=== PATIENT | female | born 1945 | race Caucasian/White ===

== ENCOUNTER 2021-06-20 18:26 | Emergency (ER) | payer MEDICARE, SELFPAY ==
--- NOTE | 2021-06-20 18:37 | ED.GENADULT ---
HPI - General Adult General Chief complaint: Extremity Injury, Upper Stated complaint: INJURED R WRIST Time Seen by Provider: 06/20/21 18:37 Source: patient Mode of arrival: ambulatory Limitations: no limitations History of Present Illness HPI narrative: 76 y/o female with hx Alzheimer's dementia presented with POA for c/o known fracture to right wrist after an unwitnessed fall at the [facility] last night. Per POA, pt was found sitting on the floor in the night, they returned her to bed, then noticed this morning she was not using the right arm to hold her coffee cup, and noticed swelling to the right wrist. Xray obtained at [facility]. Unknown if pt hit head, LOC, and she cannot describe pain. Dr Bagley sent pt for splinting for fractures to right distal radius and ulna. Pt is ambulatory, confused. Endorses pain to right wrist. History and ROS obtained from [facility] and documentation from [facility]. Related Data Home Medications Medication Instructions Recorded Confirmed Miralax 06/20/21 Seroquel 06/20/21 donepezil 06/20/21 quetiapine 06/20/21 sertraline 06/20/21 Allergies Allergy/AdvReac Type Severity Reaction Status Date / Time ibuprofen [From Advil] Allergy Unknown Verified 06/20/21 18:54 Penicillins Allergy Unknown Verified 06/20/21 18:54 Review of Systems Review of Systems: CONSTITUTIONAL: Denies body aches, fever, chills EYES: Denies visual changes ENT: Denies rhinorrhea, congestion CARDIOVASCULAR: Denies chest pain, palpitations, or edema. RESPIRATORY: Denies cough or dyspnea. GASTROINTESTINAL: Denies abdominal pain, nausea, vomiting, or diarrhea. SKIN: Denies rash, itching, or wounds. MUSCULOSKELETAL: right wrist pain NEUROLOGIC: Denies headache, numbness, tingling, or weakness. PSYCH: Denies depression or anxiety. All systems reviewed & are unremarkable except as noted in HPI and below PMFSH Comments At time of signature, I have reviewed and agree with nursing past medical, surgical, social and family history unless otherwise noted. Please see nursing chart for further information. There is no relevant family history pertinent to the presenting complaint Exam Narrative: GENERAL: Well-appearing HEAD: Normocephalic, atraumatic. EYES: conjunctivae clear, appears to have EOMI, she is unable to follow most commands as she appears to forget NECK: Supple. No vertebral point tenderness, no guarding CHEST: Speaks in full sentences. No respiratory distress. HEART: Regular rate and rhythm. Normal and equal peripheral pulses. EXTREMITIES: Pt is unable to provide history or pain level, Right UE has normal sensation, limited range of motion to wrist. Mild edema no ecchymosis, appears tender to wrist palpation. No open wounds, skin tenting, or obvious deformity; alignment normal, pulse palpable and equal bilaterally, skin warm, dry, pink. Capillary refill less than 3 seconds. SKIN: Warm, dry, no rash. NEURO: A&Ox1 PSYCH: appears tearful and scared Course Course Emergency Course: Patient's POA is aware of diagnosis, understands and agrees to treatment plan. Anticipatory guidance given. Patient agrees to follow-up as directed and is aware of reasons to seek care at the emergency department. Portions of this record may have been created with voice recognition software Level of Care: Express Care Visit Vital Signs Vital signs: Vital Signs Temperature 99.2 F 06/20/21 18:39 Pulse Rate 83 06/20/21 18:39 Respiratory Rate 20 06/20/21 18:39 Blood Pressure 123/77 06/20/21 18:39 Pulse Oximetry 100 06/20/21 18:39 Temperature 99.2 F 06/20/21 18:39 Pulse Rate 83 06/20/21 18:39 Respiratory Rate 20 06/20/21 18:39 Blood Pressure 123/77 06/20/21 18:39 Pulse Oximetry 100 06/20/21 18:39 Reviewed Procedures Orthopedic Splinting/Casting Injury #1: Splinting/Casting Date: 06/20/21 Side: right Upper Extremity Injury Location: wrist OCL: sugar tong Pre-Proced
[2021-06-20 18:39] VITALS: BP 123/77; PULSE 83; RESP 20; TEMP 37.3; O2SAT 100
== END 2021-06-20 19:23 ==
PROVIDERS: Emergency Provider Nurse Practitioner Family; PCP Family Medicine
DX: S52.501A Unspecified fracture of the lower end of right radius, initial encounter for closed fracture (principal); S52.611A Displaced fracture of right ulna styloid process, initial encounter for closed fracture; W19.XXXA Unspecified fall, initial encounter; G30.9 Alzheimer's disease, unspecified; F02.80 Dementia in other diseases classified elsewhere, unspecified severity, without behavioral disturbance, psychotic disturbance, mood disturbance, and anxiety
CPT/HCPCS: 29125; 99214; A4565; G0463